=== PATIENT | female | born 1965 | race Caucasian/White ===

== ENCOUNTER 2019-12-22 21:08 | Day surgery (SDC) | payer SELFPAY ==
[~2019-12-22] VITALS: Ht 170.2 cm; Wt 83.6 kg
[2019-12-22 21:33] LABS: BASOPHILS # (AUTO) 0.05 x10^3/uL (0-0.1); BASOPHILS % (AUTO) 1 % (0-1); EOSINOPHILS % (AUTO) 1 % (1-7); LYMPHOCYTES # (AUTO) 2.06 x10^3/uL (1-3.4); LYMPHOCYTES % (AUTO) 20 % (22-44); MD NO; MEAN CORPUSCULAR HEMOGLOBIN 32.8 pg (27.0-34.8); MEAN CORPUSCULAR HGB CONC 34.2 g/dL (32.4-35.8); MEAN CORPUSCULAR VOLUME 95.9 fL (80-100); MEAN PLATELET VOLUME 7.4 fL (7.4-10.4); MONOCYTES # (AUTO) 0.78 x10^3/uL (0.2-0.8); MONOCYTES % (AUTO) 7 % (2-9); NEUTROPHILS # (AUTO) 7.58 x10^3/uL (1.8-6.8); NEUTROPHILS % (AUTO) 72 % (42-75); PLATELET COUNT 271 x10^3/uL (130-400); RED BLOOD COUNT 4.62 x10^6/uL (3.82-5.3); RED CELL DISTRIBUTION WIDTH 12.7 % (9.6-15.2)
[2019-12-22 21:44] LABS: ALANINE AMINOTRANSFERASE 112 U/L (12-78); ALBUMIN 3.5 g/dL (3.4-5.0); ANION GAP 5 mmol/L (5-15); CALCIUM 9.2 mg/dL (8.5-10.1); CHLORIDE 107 mmol/L (98-107); CREATININE 0.85 mg/dL (0.55-1.02)
[2019-12-22 21:47] LABS: ALKALINE PHOSPHATASE 425 U/L (45-117); BILIRUBIN,TOTAL 1.7 mg/dL (0.2-1.0); TOTAL PROTEIN 7.8 g/dL (6.4-8.2)
--- NOTE | 2019-12-22 21:50 | NUR ---
pt to room from lobby
[2019-12-22] MEDS ORDERED: ONDANSETRON 2MG/ML, 2ML IVPush ONE (22:00)
[2019-12-22] MEDS ORDERED: SODIUM CHLORIDE 0.9% 1,000ML IVBOLUS ONE (22:00)
[2019-12-22] MEDS ORDERED: ONDANSETRON 2MG/ML, 2ML ONE (22:06)
[2019-12-22] MEDS ORDERED: HYDROmorphone 1 MG/ML, 1ML INJ ONE (22:06)
[2019-12-22] MEDS: HYDROmorphone 2 MG/ML, 1ML IVPush PRN (22:15)
--- NOTE | 2019-12-22 22:24 | NUR ---
IV STARTED AND PT MEDICATED PER EMAR. URINE COLLECTED AND SENT TO LAB. US TECH AT BEDSIDE, PT TO US WITH TECH, FAMILY WAITING IN ROOM.
[2019-12-22 22:52] LABS: MICROSCOPIC INDICATED
[2019-12-22] MEDS ORDERED: POTASSIUM CHLORIDE 20 MEQ in D5%-0.45% NACL 1,000 ML IV ONE (23:47)
[2019-12-23] MEDS ORDERED: NICOTINE 21 MG/24 HR PATCH.TD24 TD ONE
[2019-12-23] MEDS ORDERED: CEFOTETAN PMX 2GM/50ML 50 ML IV SCH
[2019-12-23] MEDS ORDERED: CEFOTETAN PMX 2GM/50ML 50 ML IV ONE
[2019-12-23] MEDS ORDERED: HYDROmorphone 1 MG/ML, 1ML INJ ONE (00:02)
[2019-12-23] MEDS ORDERED: NICOTINE 21 MG/24 HR PATCH.TD24 ONE (00:02)
[2019-12-23] MEDS ORDERED: CEFOTETAN PMX 1GM/50ML 50 ML ONE (00:02)
[2019-12-23] MEDS: HYDROmorphone 2 MG/ML, 1ML IVPush PRN (00:10)
[2019-12-23 00:45] VITALS: BP 106/63
[2019-12-23 02:32] VITALS: BP 106/63
[2019-12-23] MEDS ORDERED: BUPIVACAINE/PF-EPI 0.25% 1:200K ONE (06:02)
[2019-12-23] MEDS ORDERED: CHLORHEXIDINE 15 ML UDC ONE (06:37)
[2019-12-23] MEDS ORDERED: MIDAZOLAM 1 MG/ML, 2ML ONE (06:43)
[2019-12-23] MEDS ORDERED: FENTANYL PF 250 MCG/5ML ONE (06:44)
[2019-12-23] MEDS ORDERED: KETOROLAC 30 MG/1 ML ONE (06:58)
[2019-12-23] MEDS ORDERED: LIDOCAINE 1%, 10ML ONE (06:58)
[2019-12-23] MEDS ORDERED: EPHEDRINE 50 MG/ML, 1ML IVPush PRN (07:00)
[2019-12-23] MEDS ORDERED: HYDROmorphone 1 MG/ML, 1ML INJ IVPush PRN ×2 (07:00)
[2019-12-23] MEDS ORDERED: ONDANSETRON 2MG/ML, 2ML IVPush PRN (07:00)
[2019-12-23] MEDS ORDERED: MEPERIDINE/PF 25MG/0.5ML IVPush PRN (07:00)
[2019-12-23] MEDS ORDERED: hydrALAzine 20 MG/ML, 1ML IV PRN (07:00)
[2019-12-23] MEDS ORDERED: OXYcodone 5 MG/5 ML ORAL.SOL UDC PO PRN (07:00)
[2019-12-23] MEDS ORDERED: ACETAMINOPHEN 325 MG TABLET PO PRN (07:00)
[2019-12-23] MEDS ORDERED: LABETALOL 5MG/ML, 20ML IV PRN (07:00)
[2019-12-23] MEDS ORDERED: PROMETHAZINE 25 MG/ML, 1ML IVPush PRN (07:00)
[2019-12-23] MEDS ORDERED: PROPOFOL 10 MG/ML, 20ML ONE (07:09)
[2019-12-23] MEDS ORDERED: ROCURONIUM 10MG/ML,5ML ONE (07:09)
[2019-12-23] MEDS ORDERED: ONDANSETRON 2MG/ML, 2ML ONE (07:09)
[2019-12-23] MEDS ORDERED: SUCCINYLCHOLINE 20 MG/ML, 10ML ONE (07:09)
[2019-12-23] MEDS ORDERED: DEXAMETHASONE 4 MG/ML, 1ML ONE (07:09)
[2019-12-23] MEDS ORDERED: SUGAMMADEX 200 MG/2 ML IVPush ONE (07:09)
[2019-12-23] MEDS ORDERED: CEFOTETAN PMX 2GM/50ML 50 ML ONE (07:10)
[2019-12-23] MEDS ORDERED: LIDOCAINE-MPF 2% ,5ML ONE (07:10)
[2019-12-23] MEDS ORDERED: BUPIVACAINE/PF-EPI 0.25% 1:200K IM ONE (07:19)
[2019-12-23] MEDS ORDERED: ACETAMINOPHEN 650 MG/20.3 ML UDC ONE (07:58)
[2019-12-23] MEDS ORDERED: FENTANYL PF 100 MCG/2ML ONE (07:58)
[2019-12-23] MEDS ORDERED: OXYcodone 5 MG/5 ML ORAL.SOL UDC ONE ×2 (07:58→08:10)
[2019-12-23] MEDS: FENTANYL PF 100 MCG/2ML IV PRN ×2 (08:00→08:08)
[2019-12-23] MEDS ORDERED: HYDROcodone/APAP 5/325 TABLET PO PRN (10:00)
[2019-12-23] MEDS ORDERED: MORPHINE SULFATE 4 MG/ML, 1ML IVPush PRN ×2 (10:00)
[2019-12-23] MEDS ORDERED: HYDR-3652 PO (10:54)
[2019-12-23 12:49] VITALS: BP 104/65
== END 2019-12-23 13:20 | disposition home or self-care (01) ==
LOC: ED 22:56 → UNDOADMIN 23:58 → EDIP 23:58 → 4NE 12-23 00:35 → EDSTATUS 12-23 07:00 → OUT 12-23 08:00 → UNDODISIN 12-23 13:20
PROVIDERS: ATTEND Emergency Medicine
DX: K80.13 Calculus of gallbladder with acute and chronic cholecystitis with obstruction (principal); Z20.828 Contact with and (suspected) exposure to other viral communicable diseases; F17.210 Nicotine dependence, cigarettes, uncomplicated; Z79.899 Other long term (current) drug therapy; Z90.79 Acquired absence of other genital organ(s); Z98.890 Other specified postprocedural states
CPT/HCPCS: 36415; 47562; 76700; 80053; 80307; 81001; 81025; 83690; 85025; 87086; 87635; 88304; 93005; C1760; J0330; J1100; J1170; J1885; J2250; J2405; J2704; J3010; J3480; J3490; J7030